=== PATIENT | female | born 1965 | race Caucasian/White ===

== ENCOUNTER → 2016-10-17 | Outpatient (CLI) | payer BC ==
--- NOTE | 2016-10-17 16:37 | DI ---
LEFT SHOULDER, 10/17/2016 4:18 PM: Clinical History: Acute left shoulder pain. Previous Exam: 06/12/2012. 4 views are submitted. There is no acute soft tissue, osseous, or joint abnormality. 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 The visualized portions of the left apex and left lung are normal. Reading: Arthrosis of the AC joint. The exam is otherwise normal and unchanged.
== END ==
LOC: ORTHO 16:31
PROVIDERS: ATTEND Orthopaedic Surgery
DX: M25.512 Pain in left shoulder (principal); M75.42 Impingement syndrome of left shoulder; M19.012 Primary osteoarthritis, left shoulder
CPT/HCPCS: 73030

== ENCOUNTER → 2017-01-31 | Outpatient (CLI) | payer BC | LOC: MOB LAB 15:47 | PROVIDERS: ATTEND Nurse Practitioner Family | DX: Z11.59 Encounter for screening for other viral diseases (principal) | CPT/HCPCS: 36415; 86803 ==